=== PATIENT | female | born 1995 | race Hispanic/Latino ===

== ENCOUNTER 2019-03-31 18:37 | Inpatient (IN) | payer MEDICAID, OTHER, SELFPAY ==
[2019-03-31] MEDS ORDERED: hydrALAZINE 20 MG/ML VIAL SLOW IVP PRN (19:11)
[2019-03-31] MEDS ORDERED: Promethazine HCl 25 MG/ML VIAL IM PRN (19:11)
[2019-03-31] MEDS ORDERED: NS / Oxytocin 40 units/1000ml 1,000 ML IV PRN (19:11)
[2019-03-31] MEDS ORDERED: Butorphanol Tartrate 1 MG/ML VIAL SLOW IVP PRN (19:11)
[2019-03-31] MEDS ORDERED: Ondansetron PF 4 MG/2 ML Vial IVP PRN (19:11)
[2019-03-31] MEDS ORDERED: Lidocaine 1% (PF) 30 ML VIAL SC PRN (19:11)
[2019-03-31] MEDS ORDERED: Penicillin G Potassium 5 MILL.UNITS in Sodium Chloride 0.9% 100 ML IVPB SCH (19:15)
[2019-03-31] MEDS ORDERED: Penicillin G 2.5 MILL.units 2.5 MILL.UNITS in Premix Bag 1 BAG IVPB SCH (19:15)
[2019-03-31] MEDS: Lactated Ringer's 1,000 ML IV SCH (19:45)
[2019-03-31 20:19] VITALS: BMI 31.1
--- NOTE | 2019-03-31 20:42 | PDOC.FPROB ---
FMR OB H&P: HPI - History of Present Illness Chief Complaint: Elective Induction of Labor History of Present Illness: 24 yo patient presents for elective post dates induction at 40.1wk. Pt states that her gestation has been normal without any problems. She is GBS +. She notes having some small amount of dark red blood per vagina this morning and loss of blood tinged fluid tonight around 1930. She denies feeling any contractions. Notes lower abdominal and vaginal pressure. Denies any fever, chills, vaginal discharge, headaches, increased swelling, or vision changes. Primary Care Physician: Dr. Raúl Owens FMR OB H&P: Current - Care : 1 Para: 0 Gestational age: 40.1 Due date: 03/30/2019 Dating Criteria: LMP and 14.4wk sono - OB Labs Blood type: O RH: positive Antibody Screen: negative HIV: negative RPR: negative HepBsAg: negative Rubella: immune Gonorrhea: negative Chlamydia: negative Pap Smear: NILM 1 hour gtt: 73 GBS: positive Additional labs: Quant Gold + FMR OB H&P: History - Past Medical History PMH: Latent TB - OB History OB History: Previa - resolved - OPERATIONS EXPERT History OPERATIONS EXPERT History: No abnormal paps - Surgical History Sx History: None - Social History Social History: Negative tobacco, alcohol, drugs - Family History Family History: Non Contributory FMR OB H&P: Medications - Current Home Medications: Medication Instructions Recorded Confirmed Type Pnv No.95/Ferrous Fum/Folic AC 1 tab PO DAILY 03/31/19 03/31/19 History [ Caplet] Allergies/Adverse Reactions: Allergies Allergy/AdvReac Type Severity Reaction Status Date / Time No Known Allergies Allergy Verified 03/31/19 20:21 FMR OB H&P: ROS - Review of Systems General: denies: fever/chills, weight/appetite/sleep changes Eyes: denies: vision changes, double vision ENT: denies: nasal congestion, rhinorrhea Cardiovascular: denies: chest pain, edema Respiratory: denies: cough, shortness of breath Gastrointestinal: denies: abdominal pain, vomiting, diarrhea, constipation Genitourinary (Female): reports: vaginal pain, vaginal bleeding, vaginal pressure. denies: dysuria, polyuria, vaginal discharge, contractions Musculoskeletal: denies: pain, tenderness Neurologic: denies: numbness, weakness Integumentary: denies: itching, rash Endocrine: denies: polydipsia, polyuria FMR OB H&P: Vital Signs - Heart Tones Baseline: 125 Variability: moderate Acceleration: present Deceleration: absent Category: category 1 FMR OB H&P: Physical Exam - Physical Exam General: NAD, awake, alert and oriented HEENT: normocephalic and atraumatic, EOMI, grossly normal vision, grossly normal hearing Neck: supple, FROM, no JVD Heart: RRR, normal S1/S2, no murmurs/rubs/gallops General: CTAB, no respiratory distress, good air movement Abdomen: soft, gravid, non-tender, bowel sound present Musculoskeletal: normal gait and station, pulses present, FROM in all four extremities Neurological: cranial nerves II through XII intact, no focal deficit Skin: no rash, capillary refill <2 seconds Lymphatic: no unusual bruising or bleeding, no purpura Psychiatric: intact recent and remote memory, good judgement and insight, normal mood and affect - Pelvic Exam Vulva: normal hair distribution SVE: CTH FMR OB H&P: A/P - Problem List (1) Elective induction of labor planned Current Visit: Yes Status: Acute Code(s): [id number] - (2) Latent tuberculosis by blood test Current Visit: Yes Status: Acute Code(s): Z22.7 - LATENT TUBERCULOSIS (3) Post-dates Current Visit: Yes Status: Acute Code(s): O48.0 - POST-TERM (4) Group B streptococcal infection during Current Visit: Yes Status: Acute Code(s): O98.819 - OTH MATERNAL INFEC/ PARASTC DISEASES COMP PREG, UNSP TRI; B95.1 - STREPTOCOCCUS, GROUP B, CAUSING DISEASES CLASSD ELSWHR Disposition: Elective post dates induction - Cat 1 strip - Cytotec induction - Nunez Score: 0 - SVE: C/T/H - Continuous monitoring GBS + - Penicillin G 5 then 2.5 q4hr until delivery - Currently afebrile, not tachy Discussion: Date/Time: 03/31/192041 This H&P was discussed with [] and [] who agree with the above documentation and plan. Signature: Miguel Quick D.O. PGY1 Addendum - Attending - Attending Attestation Date/Time: 04/01/19 0255 I personally evaluated the patient and discussed the management with Dr. Quick on 03/31. I agree with the History, Examination, Assessment and Plan documented above with any addition or exceptions noted below. Patient here for elective induction. Verified consent vs PLTCS and patient voiced understanding and had no questions.
[2019-03-31 21:06] LABS: Hemoglobin 12.4 g/dL (12.0-16.0); Mean Corpuscular HGB CONC 33.7 g/dL (32.0-36.0); Mean Corpuscular Hemoglobin 27.6 pg (27.0-31.0); Mean Corpuscular Volume 82.1 fL (78.0-98.0); Mean Platelet Volume 6.8 fL (7.4-10.4); Platelet Count 380 thou/uL (130-400); White Blood Cell (WBC) Count 9.1 thou/uL (4.8-10.8)
[2019-03-31] MEDS: Misoprostol 100 MCG TAB VAG SCH (21:16)
[2019-03-31 21:37] LABS: Syphilis Antibody Nonreactive (Nonreactive); Syphilis Antibody Index 0.04 S/CO (<1.00 Non-Reactive)
[2019-04-01] MEDS: Penicillin G 2.5 MILL.units 2.5 MILL.UNITS in Premix Bag 1 BAG IVPB SCH ×2 (01:02→05:53)
[2019-04-01] MEDS: Lactated Ringer's 1,000 ML IV SCH (01:38)
[2019-04-01 02:02] LABS: HBSAg Index 0.37 S/CO (0-0.99); Hep B Surf Ag Non-Reactive S/CO (NonReactive)
[2019-04-01] MEDS ORDERED: Bicitra 30 ML UDCUP PO SCH (02:45)
[2019-04-01] MEDS ORDERED: CEFAZOLIN 2 GM in Premix Bag 1 BAG IVPB SCH (02:45)
[2019-04-01] MEDS ORDERED: Dexamethasone 4 mg/ml Vial ONE (03:04)
[2019-04-01] MEDS ORDERED: Oxytocin 10 UNITS/ML VIAL ONE (03:04)
[2019-04-01] MEDS ORDERED: PHENYLEPHRINE-NS 100 MCG/ML 10 ML SYRINGE ONE ×2 (03:04→13:28)
[2019-04-01] MEDS ORDERED: Ketorolac Tromethamine 30 MG/ML VIAL ONE ×2 (03:04→13:28)
[2019-04-01] MEDS ORDERED: Ondansetron PF 4 MG/2 ML Vial ONE ×2 (03:04→13:28)
[2019-04-01] MEDS ORDERED: diphenhydrAMINE 50 MG/ML VIAL ONE (03:04)
[2019-04-01] MEDS ORDERED: Azithromycin 500 MG VIAL ONE (03:05)
--- NOTE | 2019-04-01 03:05 | PDOC.LDPN ---
Labor & Delivery Progress Note - Subjective Subjective: painful contractions - Objective Vital signs reviewed and normal: yes General: breathing through contractions Uterine fundus: non tender Dilation: 2 Effacement: 100% Station: -2 FHT: category 2 ( tachycardia with decelerations (early, late, variable)) Canones contractions every: q2-3m Resuscitative measures: maternal IV fluids, maternal position change - Assessment (1) Elective induction of labor planned Code(s): [id number] - Current Visit: Yes Status: Acute (2) Latent tuberculosis by blood test Code(s): Z22.7 - LATENT TUBERCULOSIS Current Visit: Yes Status: Acute (3) Post-dates Code(s): O48.0 - POST-TERM Current Visit: Yes Status: Acute (4) Group B streptococcal infection during Code(s): O98.819 - OTH MATERNAL INFEC/PARASTC DISEASES COMP PREG, UNSP TRI; B95.1 - STREPTOCOCCUS, GROUP B, CAUSING DISEASES CLASSD ELSWHR Current Visit: Yes Status: Acute Plan: other (I was called at 0154 for tachycardia and decelerations and went to bedside and reviewed the FHTs and concurred. Discussed with patient and family that this could be a sign of distress. Over the next period of observation she continued to have tachycardia in the 180's with intermittent decelerations. The decision was to proceed with PLTCS and I discussed this with the family with an freelance interpreter/translator and they voiced understanding of r/b of waiting vs PLTCS and desired to proceed with section. Anesthesia has already been notified.)
[2019-04-01] MEDS ORDERED: MORPHINE 5 MG/10 ML PF VIAL ONE (03:06)
[2019-04-01] MEDS ORDERED: Azithromycin 500 MG in Sodium Chloride 0.9% 250 ML 250 ML IVPB SCH (03:15)
[2019-04-01] MEDS ORDERED: Fentanyl 100 MCG/2 ML VIAL ONE (03:33)
[2019-04-01] MEDS ORDERED: ePHEDrine/0.9% NaCl/PF SYRINGE 50 mg/10 ml ONE (03:39)
[2019-04-01] MEDS ORDERED: Ondansetron PF 4 MG/2 ML Vial IVP PRN ×2 (03:45→08:55)
[2019-04-01] MEDS ORDERED: Naloxone HCl 0.4 mg/ml Vial IVP PRN ×2 (03:45)
[2019-04-01] MEDS ORDERED: Ondansetron HCl/PF 4 MG/2 ML Vial IVP PRN (03:45)
[2019-04-01] MEDS ORDERED: Naloxone HCl 0.4 mg/ml Vial IV PRN (03:45)
[2019-04-01] MEDS ORDERED: Communication Order-Pharmacy FS SCH (03:45)
[2019-04-01] MEDS ORDERED: diphenhydrAMINE 50 MG/ML VIAL IVP PRN (03:45)
[2019-04-01] MEDS ORDERED: Promethazine HCl 25 MG SUPP PR PRN (03:45)
[2019-04-01] MEDS ORDERED: Promethazine HCl 25 MG/ML VIAL SLOW IVP PRN (03:45)
[2019-04-01] MEDS ORDERED: Promethazine HCl 25 MG/ML VIAL IM PRN ×2 (03:45)
[2019-04-01] MEDS: Misoprostol 100 MCG TAB VAG SCH ×2 (05:12→06:03)
--- NOTE | 2019-04-01 05:15 | PDOC.OP ---
Operative Note - Operative Note Operative Note: Procedure Note Date of Procedure: 04/01/19 Resident Surgeon: Dr Raúl Owens, Dr Azul Castorena Attending Surgeon: Dr.Brandon Tineo Procedure: Primary low transverse caesarean section Preoperative Diagnosis: 1) Term intrauterine , eIOL 2) Tachycardia, NRFHT 3) Latent TB Postoperative Diagnosis: 1) Term intrauterine -delivered 2) Latent TB 3) Hemorrhage Anesthesia: spinal Indications: 24 yo at 40.2 wks presented for late-term eIOL. Cytotec was placed and contractions were regular 3-4 minutes apart. Then infant developed tachycardia, baseline 178, good variability. Interventions were attempted but tachycardia persisted >2 hours and began to have early decelerations remote from delivery. Shared decision with discussion of R/B/A was made with patient for C/S. Procedure in Detail: After risks, benefits, and alternatives were explained to the patient, she gave informed consent. Pre-operative antibiotics included ancef , azithromycin. She also received penicillin for GBS ppx. The patient was taken to the operating room and spinal anesthesia was placed. She was placed in the supine position with a left tilt and prepped and draped in usual sterile fashion. A Pfannenstiel incision was made with a scalpel and carried down to the level of the fascia which was sharply nicked. The fascial cut was extended bilaterally with Mcdaniels scissors. The inferior and superior edges of the cut fascial edges were elevated with Rashawn clamps and the underlying rectus muscles were sharply and bluntly dissected free. The recti were divided using bluntly. The peritoneum was entered bluntly and retracted manually. George O- ring was placed. A low transverse score was made with the scalpel and the uterus was entered in the midline with the scalpel. Clear fluid was seen. The hysterotomy was extended manually. The infant was noted to be vertex and was easily delivered by fundal pressure. Mouth and nares were bulb suctioned. Cord clamped and cut and grossly normal male infant was handed to waiting nurse. Uterus was externalized. Cord blood was obtained. Placenta was manually extracted, found to be intact with 3 vessel cord and discarded. The uterus was externalized and the endometrium was curetted with a dry lap. The hysterotomy was closed with a running locking 0-Monocryl in the usual fashion. Following this hemostasis was noted. An imbricating layer was placed using 0-Monocryl. Uterus was internalized and the hysterotomy was again noted to be hemostatic. The peritoneum was closed with 2-0 chromic in the usual running fashion. The fascia was closed with a running non-locking 0-PDS suture. The subcutaneous tissue was irrigated and there were no bleeders. The subcutaneous layer was approximated with running 2-0 vicryl. The skin was approximated with 1-0 monocryl on a koko needle and a pressure dressing was placed. All counts were correct. The patient tolerated the procedure well and was taken to the recovery room in stable condition. QBL: 1140ml Complications: PPH Specimens: Cord blood sent to lab for blood type, placenta sent for pathology 2/ 2 tachycardia Findings: Grossly male infant. Grossly normal placenta with 3 vessel cord. Drains: Nunez to gravity draining clear urine Addendum - Attending - Attending Attestation Date/Time: 04/01/19 0715 I was present and scrubbed for the entire case. Please note indications: persistent category II FHTs (tachycardia with late, variable, and early decelerations) remote from delivery.
[2019-04-01] MEDS ORDERED: Ketorolac Tromethamine 30 MG/ML VIAL IVP PRN (08:00)
[2019-04-01] MEDS ORDERED: hydrALAZINE 20 MG/ML VIAL SLOW IVP PRN (08:55)
[2019-04-01] MEDS ORDERED: Lanolin Ointment 7 GM TUBE TOP PRN (08:55)
[2019-04-01] MEDS ORDERED: Acetaminophen 325 MG TAB PO PRN (08:55)
[2019-04-01] MEDS: Ferrous Sulfate 325 MG TAB PO SCH ×2 (09:21→21:14)
[2019-04-01] MEDS: Docusate Calcium (SURFAK) 240 MG CAP PO SCH ×2 (09:27→21:14)
[2019-04-01] MEDS ORDERED: ePHEDrine 50 MG/ML VIAL ONE (13:28)
[2019-04-01] MEDS ORDERED: Dexamethasone 20 MG/5 ML VIAL ONE (13:28)
[2019-04-01] MEDS: Ibuprofen 800 MG TAB PO SCH ×2 (14:21→21:14)
[2019-04-01] MEDS: HYDROcodone/Acetaminophen 5/325 mg Tablet PO PRN (19:29)
[2019-04-02] MEDS: HYDROcodone/Acetaminophen 5/325 mg Tablet PO PRN ×3 (00:02→17:03)
[2019-04-02] MEDS: Ibuprofen 800 MG TAB PO SCH ×3 (05:41→21:18)
[2019-04-02 06:44] LABS: Hemoglobin 8.8 g/dL (12.0-16.0); Mean Corpuscular HGB CONC 33.2 g/dL (32.0-36.0); Mean Corpuscular Volume 84.3 fL (78.0-98.0); Mean Platelet Volume 6.6 fL (7.4-10.4); Platelet Count 299 thou/uL (130-400); Red Blood Cell (RBC) Count 3.16 mill/uL (4.20-5.40); White Blood Cell (WBC) Count 11.8 thou/uL (4.8-10.8)
--- NOTE | 2019-04-02 06:56 | PDOC.PP ---
Post Progress Note Post Day #: 1 Subjective: This morning patient states she is having some cramping pain but otherwise doing well. Bleeding about like menses. Denies N/V/D. Denies fevers, chills, sweats. Nursing staff denies noting any foul discharge. PO intake tolerated: yes Flatus: yes Ambulation: yes Vital Signs (12 hours) Temp Pulse Resp BP Pulse Ox 04/02/19 04:19 98.2 F 79 16 110/59 L 98 04/01/19 23:41 97.8 F 97 16 108/53 L 97 04/01/19 19:21 99.2 F 81 16 101/55 L 95 Weight Weight 73.936 kg - Physical Examination General: NAD Cardiovascular: no m/r/g, RRR Respiratory: clear to auscultation bilaterally, non-labored breathing Abdominal: + bowel sounds, lochia, no distention, appropriately TTP Fundus firm & at: 1 cm below umbilicus Extremities: negative homans (B) Skin: CS incision dry & intact, no rash Neurological: no gross focal deficits Psychiatric: A&Ox3, normal affect Result Diagrams: 04/02/19 06:32 Additional Labs: Post Labs Blood Type O POSITIVE 03/31/19 21:08 Hep Bs Antigen Non-Reactive S/CO (NonReactive) 03/31/19 20:06 (1) care and examination Code(s): Z39.2 - ENCOUNTER FOR ROUTINE FOLLOW-UP Status: Acute (2) Latent tuberculosis by blood test Code(s): Z22.7 - LATENT TUBERCULOSIS Status: Acute (3) Post-dates Code(s): O48.0 - POST-TERM Status: Acute - Assessment/Plan # PPD 1, s/p pLTCS - mild cramping pain, cont symptomatic treatment - ambulating - still working on breast vs bottle feeding - tender uterus, no fever, no lochia, no chills -> monitor vitals q4, watch for fever, watch closely or endometritis 2/2 to tachycardia, discussed with nursing staff # PPH - hgb 12.2-> 8.8 - U/O 1.5 ml/kg/hr last 24 hours - no syncopal sxs # latent TB - f/u at health dept Dispo: anticipate d/c tomorrow AM Addendum - Attending - Attending Attestation Date/Time: 04/02/19 3115 I personally evaluated the patient and discussed the management with Dr. Owens. I agree with the History, Examination, Assessment and Plan documented above with any addition or exceptions noted below. Patient is doing well post-. No signs of infection. Continue care.
[2019-04-02] MEDS ORDERED: Adacel (T-DAP) 0.5 ML SYRINGE IM ONE (08:55)
[2019-04-02] MEDS: Docusate Calcium (SURFAK) 240 MG CAP PO SCH ×2 (10:33→21:18)
[2019-04-02] MEDS: Ferrous Sulfate 325 MG TAB PO SCH ×2 (12:06→19:55)
[2019-04-03] MEDS: Ibuprofen 800 MG TAB PO SCH ×3 (05:28→22:07)
--- NOTE | 2019-04-03 07:13 | PDOC.PP ---
Post Progress Note Post Day #: 2 Subjective: Patient states she is feeling well today. Her pain is improved but still having some cramping. Bleeding is decreased. No N/V/D. Tolerating PO without difficulty. Denies fevers, chills, sweats, or d/c. PO intake tolerated: yes Flatus: yes Ambulation: yes Vital Signs (12 hours) Temp Pulse Resp BP Pulse Ox 04/03/19 05:34 97.9 F 88 18 111/63 97 04/02/19 23:50 98.4 F 82 18 108/57 L 96 04/02/19 20:52 97.9 F 84 18 112/66 98 04/02/19 19:55 98 Weight Weight 73.936 kg - Physical Examination General: NAD Cardiovascular: no m/r/g, RRR Respiratory: clear to auscultation bilaterally, non-labored breathing Abdominal: + bowel sounds, lochia, no distention, appropriately TTP Extremities: negative homans (B) Skin: CS incision dry & intact, no rash Neurological: no gross focal deficits Psychiatric: A&Ox3, normal affect Result Diagrams: 04/02/19 06:32 Additional Labs: Post Labs Blood Type O POSITIVE 03/31/19 21:08 Hep Bs Antigen Non-Reactive S/CO (NonReactive) 03/31/19 20:06 (1) care and examination Code(s): Z39.2 - ENCOUNTER FOR ROUTINE FOLLOW-UP Status: Acute (2) Latent tuberculosis by blood test Code(s): Z22.7 - LATENT TUBERCULOSIS Status: Acute (3) Post-dates Code(s): O48.0 - POST-TERM Status: Acute - Assessment/Plan # POD 2, s/p pLTCS - mild cramping pain, cont symptomatic treatment - ambulating - bottle feeding - tender uterus, no fever, no lochia, no chills # PPH - hgb 12.2-> 8.8 - no syncopal sxs # latent TB - f/u at health dept Dispo: anticipate d/c tomorrow AM Addendum - Attending - Attending Attestation Date/Time: 04/03/19 1110 I personally evaluated the patient and discussed the management with Dr. Owens. I agree with the History, Examination, Assessment and Plan documented above with any addition or exceptions noted below. Anticipate discharge today or tomorrow.
[2019-04-03] MEDS: Ferrous Sulfate 325 MG TAB PO SCH ×2 (10:12→22:07)
[2019-04-03] MEDS: Docusate Calcium (SURFAK) 240 MG CAP PO SCH ×2 (10:12→22:07)
[2019-04-03] MEDS: HYDROcodone/Acetaminophen 5/325 mg Tablet PO PRN ×2 (11:40→15:53)
[2019-04-04] MEDS: Ibuprofen 800 MG TAB PO SCH ×2 (06:29→14:34)
--- NOTE | 2019-04-04 08:26 | PDOC.PP ---
Post Progress Note Post Day #: 3 Subjective: Patient doing well. No significant overnight events. Patient still has intermittent abdominal pain which is relieved by [place]. She states that her pain is worse on the left side. She is able to ambulate without difficulty. She is tolerating PO and passing flatus. Denies fever, chills, shortness of breath or chest pain. PO intake tolerated: yes Flatus: yes Ambulation: yes Vital Signs (12 hours) Temp Pulse Resp BP 04/04/19 06:38 97.9 F 86 18 105/59 L Weight Weight 73.936 kg - Physical Examination General: NAD Cardiovascular: no m/r/g, RRR Respiratory: clear to auscultation bilaterally, non-labored breathing Abdominal: + bowel sounds, lochia (minimal), no distention Deviation from normal: Uterus TTP, more so than what would be expected POD #3 Fundus firm & at: at umbilicus Extremities: negative homans (B) Skin: CS incision dry & intact, no rash Neurological: no gross focal deficits Psychiatric: A&Ox3, normal affect Result Diagrams: 04/02/19 06:32 Additional Labs: Post Labs Blood Type O POSITIVE 03/31/19 21:08 Hep Bs Antigen Non-Reactive S/CO (NonReactive) 03/31/19 20:06 (1) Term delivered Code(s): O80 - ENCOUNTER FOR FULL-TERM UNCOMPLICATED DELIVERY Status: Acute (2) Group B streptococcal infection during Code(s): O98.819 - OTH MATERNAL INFEC/PARASTC DISEASES COMP PREG, UNSP TRI; B95.1 - STREPTOCOCCUS, GROUP B, CAUSING DISEASES CLASSD ELSWHR Status: Acute (3) Latent tuberculosis by blood test Code(s): Z22.7 - LATENT TUBERCULOSIS Status: Acute - Assessment/Plan POD 3, s/p pLTCS - mild cramping pain, cont symptomatic treatment - ambulating without difficulty - bottle feeding - tender uterus, no fever, no lochia, no chills; given degree of uterine tenderness, will treat for endometritis with augmentin BID x10 days. Patient advised to follow up with [facility] on Saturday or Saturday of next week. PPH - hgb 12.2-> 8.8 - no s/s of anemia - continue iron supplementation Latent TB - f/u at health dept as directed Possible endometritis - As stated above, will treat with augmentin x10 days - Close follow up advised; follow up on Saturday or Saturday of next week - Procal neg GBS positive - Adequately treated Dispo: D/C home today. Addendum - Attending - Attending Attestation Date/Time: 04/04/19 2062 I personally evaluated the patient and discussed the management with Dr. Jorgensen I agree with the History, Examination, Assessment and Plan documented above with any addition or exceptions noted below. 24 yo now female s/p LTCS on 04/01/19 at 0351 HD# 4 POD# 3 Patient continues to report progressive abdominal pain. No fever or chills. No foul discharge. Pain with getting out of bed but not with ambulating. Breast and bottle. Denies CP/SOB/dizziness. Lochia mild. +flatus. VS reviewed. Labs reviewed. NAD RRR, I/ systolic flow CTAB, no w/c/r Fundus below umbilicus by moderately tender to palpation -- increased from this morning Incision intact, no erythema, no drainage, nontender FROM no e/e/c 1. s/p LTCS: Meeting milestones. Surgical pain controlled. Incision healing well. Without s/sx of infection. Placenta path with dystrophic calcifications. 2. PP endometritis: Concern for PPE. Mild. Add procal to labs. Start oral treatment. Follow up closely outpatient on Saturday or Saturday with [facility]. 3. Latent TB: Patient will need treatment after completion of breast feeding. 4. GBS pos carrier 5. PPH: QBL 1140. Asymptomatic. Continue iron supplementation. 6. Contraception: Follow up with PCP. Ok to d/c to home. Follow up on Saturday or Saturday for wound check and to make sure PPE not worsening. ER precautions discussed. Merlin
[2019-04-04] MEDS: Ferrous Sulfate 325 MG TAB PO SCH (09:09)
[2019-04-04] MEDS: HYDROcodone/Acetaminophen 5/325 mg Tablet PO PRN ×2 (09:09→14:34)
[2019-04-04] MEDS: Docusate Calcium (SURFAK) 240 MG CAP PO SCH (09:09)
[2019-04-04 12:19] VITALS: BP 116/61; TEMP 97.7
== END 2019-04-04 15:40 | disposition home or self-care (01) | DRG 787 ==
LOC: L&D 18:37 → 3SE 04-01 08:15
PROVIDERS: ADMIT Emergency Medicine; ATTEND Emergency Medicine
PROC: 10907ZC Drainage of Amniotic Fluid, Therapeutic from Products of Conception, Via Natural or Artificial Opening (ICD-10-PCS; 2019-03-31)
PROC: 3E033VJ Introduction of Other Hormone into Peripheral Vein, Percutaneous Approach (ICD-10-PCS; 2019-03-31)
PROC: 3E0P7VZ Introduction of Hormone into Female Reproductive, Via Natural or Artificial Opening (ICD-10-PCS; 2019-03-31)
PROC: 10D00Z1 Extraction of Products of Conception, Low, Open Approach (ICD-10-PCS; principal; 2019-04-01)
DX: O48.0 Post-term pregnancy (principal); O72.1 Other immediate postpartum hemorrhage; O86.12 Endometritis following delivery; Z37.0 Single live birth; Z3A.40 40 weeks gestation of pregnancy; Z22.7 Latent tuberculosis; O99.824 Streptococcus B carrier state complicating childbirth; O76 Abnormality in fetal heart rate and rhythm complicating labor and delivery
CPT/HCPCS: 36415; 51702; 84145; 85027; 86780; 86850; 86900; 86901; 87340; 88307; J0456; J0690; J1100; J1200; J1885; J2274; J2405; J2540; J2590; J3010; J3490